=== PATIENT | male | born 1995 | race Caucasian/White ===

== ENCOUNTER 2019-05-03 15:09 | Emergency (ER) | payer OTHER ==
[2019-05-03] MEDS ORDERED: SODIUM CHLORIDE 0.9% 1,000 ML IV STA ×2 (16:18)
[2019-05-03 16:30] LABS: Basophils % (A) 0 %; Eosinophils # (A) 0.1 k/uL (0-0.7); Eosinophils % (A) 2 %; HCT 47.7 % (39.0-53.0); Lymphocytes # (A) 1.8 k/uL (1.0-4.8); Lymphocytes % (A) 28 %; MCH 29.8 pg (25.0-35.0); MCHC 33.6 g/dL (31.0-37.0); MCV 88.6 fL (80.0-100.0); Mean Platelet Volume 6.8; Monocytes # (A) 0.4 k/uL (0-1.0); Monocytes % (A) 5 %; Neutrophils % (A) 63 %; Platelet Count 300 k/uL (150-450); RBC 5.38 m/uL (4.30-5.90); RDW 13.3 % (11.5-15.5); WBC 6.4 k/uL (3.8-10.6)
[2019-05-03 16:46] LABS: ALT 12 U/L (21-72); AST 21 U/L (17-59); African American GFR (CKD) >90 (>60 ml/min/1.73 sqM); Albumin 5.1 g/dL (3.5-5.0); Alkaline Phosphatase 137 U/L (38-126); Amylase 50 U/L (30-110); Anion Gap 10 mmol/L; Blood Urea Nitrogen 12 mg/dL (9-20); Calcium 10.4 mg/dL (8.4-10.2); Carbon Dioxide 26 mmol/L (22-30); Chloride 106 mmol/L (98-107); Glucose 104 mg/dL (74-99); Lipase 115 U/L (23-300); Potassium 4.3 mmol/L (3.5-5.1); Sodium 142 mmol/L (137-145); Total Bilirubin 0.3 mg/dL (0.2-1.3); Total Protein 8.2 g/dL (6.3-8.2)
[2019-05-03 16:52] LABS: Partial Thromboplastin Time 25.5 sec (22.0-30.0); Prothrombin Time 10.6 sec (9.0-12.0)
--- NOTE | 2019-05-03 17:21 | XR ---
EXAMINATION TYPE: XR chest 2V DATE OF EXAM: 05/03/2019 COMPARISON: NONE HISTORY: Chest and abdominal pain with dizziness. TECHNIQUE: Frontal and lateral views of the chest are obtained. FINDINGS: There is no focal air space opacity, pleural effusion, or pneumothorax seen. The cardiac silhouette size is within normal limits. There is stent graft in the distal arch extending into the d escending thoracic aorta . The osseous structures are intact. IMPRESSION: No acute cardiopulmonary process.
--- NOTE | 2019-05-03 17:22 | XR ---
EXAMINATION TYPE: XR KUB DATE OF EXAM: 05/03/2019 5:15 PM CLINICAL HISTORY: Abdominal pain and dizziness. TECHNIQUE: Two Upright KUB images of the abdomen are obtained. COMPARISON: None. FINDINGS: Scattered gas is seen in non-distended stomach and small bowel loops. Gas and fecal materia l is seen in non-distended colon. There is no visceromegaly, pneumoperitoneum, or abnormal calcificat ion appreciated. The lung bases are clear and the osseous structures are intact. IMPRESSION: Overall nonobstructive bowel gas pattern.
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
[2019-05-03 18:16] LABS: Appearance,Urine Cloudy (Clear); Bilirubin,Urine Negative (Negative); Blood,Urine Negative (Negative); Calcium Oxalate Crystals,Urine Rare /hpf; Color,Urine Yellow; Glucose,Urine (UA) Negative (Negative); Ketones,Urine Negative (Negative); Leukocyte Esterase,Urine Negative (Negative); Mucus,Urine Many /hpf; Nitrite,Urine Negative (Negative); PH, Urine 5.5 (5.0-8.0); Protein,Urine 1+ (Negative)
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
[2019-05-03 20:12] VITALS: BP 132/73; PULSE 53; RESP 18; TEMP 97.8
== END 2019-05-03 20:13 | disposition home or self-care (01) ==
LOC: EC 15:09
DX: R07.89 Other chest pain (principal); R10.9 Unspecified abdominal pain; R51 Headache; R42 Dizziness and giddiness; R00.1 Bradycardia, unspecified; F17.200 Nicotine dependence, unspecified, uncomplicated; Z79.01 Long term (current) use of anticoagulants; Z79.899 Other long term (current) drug therapy; Z88.0 Allergy status to penicillin; Z95.828 Presence of other vascular implants and grafts
CPT/HCPCS: 99285; 96360; 96361 ×2; 36415; 93005; 80053; 82150; 83690; 84484; 85025; 85610; 85730; 81001; 71046; 74018; 71275; 74174; Q9967

== ENCOUNTER 2022-09-10 14:24 | Emergency (ER) | payer OTHER ==
[2022-09-10] MEDS ORDERED: LIDOCAINE 1% INJ 10MG/ML (30 ML VIAL-PF) SQ ONE (15:58)
[2022-09-10] MEDS ORDERED: DIPH,PERTUS(ACELL)TETVAC-LF 0.5 ML VIAL IM ONE (15:58)
--- NOTE | 2022-09-10 16:24 | XR ---
EXAMINATION TYPE: XR finger LT DATE OF EXAM: 09/10/2022 COMPARISON: NONE HISTORY: Laceration injury with pain TECHNIQUE: 3 views left thumb FINDINGS: No acute fracture or dislocation in the left thumb. Joint spaces are maintained. Overlying gauze and/or bandage material is seen, cannot exclude tiny punctate soft tissue foreign body near the radial base of the first proximal phalanx as seen on 2 views. IMPRESSION: As above.
[2022-09-10] MEDS ORDERED: MORPHINE SULFATE 4 MG/ML SYRINGE IM STA (16:49)
--- NOTE | 2022-09-10 17:06 | ED ---
Wound/Laceration HPI - General Chief Complaint: Wound/Laceration Stated Complaint: LEFT HAND INJURY Time Seen by Provider: 09/10/22 15:57 Source: patient, RN notes reviewed Mode of arrival: ambulatory Limitations: no limitations - History of Present Illness Initial Comments: Patient is 27-year-old male presenting to the emergency room after acc identally cutting his left hand/thumb while at work today on a utility knife. He reports utilizing utility and slipping causing a significantly large laceration to the palmar aspect of his left thumb. He denies any range of motion impairment or weakness.directly related to pain from the laceration. He is unsure of his tetanus status and is agreeable to have his tetanus vaccination updated. He does have past medical history of aortic surgeries and gets premedicated regarding dental work and is prophylactically treated with antibiotics for mild infections. He has a past medical history significant for IV drug abuse but is no longer utilizing them. - Related Data Home Medications Medication Instructions Recorded Confirmed Labetalol HCl [Trandate] 300 mg PO TID 05/03/19 05/03/19 Warfarin [Coumadin] 5 mg PO DAILY 05/03/19 05/03/19 Previous Rx's Medication Instructions Recorded Sulfamethox-Tmp 800-160Mg [Bactrim 1 tab PO Q12HR 5 Days #10 tab 09/10/22 DS 800-160 mg] Allergies Allergy/AdvReac Type Severity Reaction Status Date / Time Penicillins Allergy Unknown Verified 05/03/19 16:12 Childhood Review of Systems ROS Statement: Those systems with pertinent positive or pertinent negative responses have been documented in the HPI. ROS Other: All systems not noted in ROS Statement are negative. Past Medical History Past Medical History: No Reported History Additional Past Medical History / Comment(s): IV drug use, congenital aortic anomaly with surgical intervention History of Any Multi-Drug Resistant Organisms: None Reported Past Surgical History: Orthopedic Surgery Additional Past Surgical History / Comment(s): aortic graph Past Psychological History: ADD/ADHD Past Alcohol Use History: Occasional Past Drug Use History: Heroin, Marijuana General Exam Limitations: no limitations General appearance: alert Head exam: Present: atraumatic, normocephalic, normal inspection Eye exam: Present: normal appearance, PERRL, EOMI. Absent: scleral icterus, conjunctival injection, periorbital swelling ENT exam: Present: normal exam, mucous membranes moist Neck exam: Present: normal inspection, full ROM Respiratory exam: Absent: respiratory distress, accessory muscle use Cardiovascular Exam: Present: regular rate GI/Abdominal exam: Absent: distended Left Hand Wrist exam: Present: full ROM, tenderness, laceration. Absent: ecchymosis, deformity, crepitus, dislocation, erythema, amputation, nail avulsion Vascular: Absent: vascular compromise Back exam: Present: normal inspection Neurological exam: Present: alert, oriented X3, CN II-XII intact Psychiatric exam: Present: normal affect, normal mood Skin exam: Present: other (Laceration as above.) Course Vital Signs 09/10/22 09/10/22 14:52 17:14 Temperature 98 F 98.1 F Pulse Rate 80 94 Respiratory 16 17 Rate Blood Pressure 139/79 126/76 O2 Sat by Pulse 98 100 Oximetry Procedures - Laceration Laceration #1 Consent Obtained: verbal consent Indication: laceration Site: hand (Left thumb palmar aspect) Size (cm): 3 (3.5) Description: linear Depth: simple, single layer Anesthetic Used: lidocaine 1% Anesthesia Technique: local infiltration Pre-repair: wound explored, irrigated extensively Type of Sutures: nylon Size of Sutures: 4-0 Number of Sutures: 7 Technique: simple, interrupted Patient Tolerated Procedure: well, no complications Medical Decision Making - Medical Decision Making 27-year-old male presenting with laceration to left palmar aspect region. Due to depth of wound will obtain x-ray to ensure no chip fracture or foreign object. Will update tetanus. No indication for laboratory studies. Due to valvular repair will need prophylactic oral antibiotic treatment. X-ray left thumb and which interpreted by me shows no fracture, dislocation or foreign body. Radiologist report reviewed. Will plan for laceration closure with sutures. Laceration closure tolerated well. Will place on oral antibiotic therapy and discharge home in stable condition. Advised wound care and caution of sutures especially if returning to work. Advised need for suture removal in 7-10 days. Case discussed with Dr. Solares. - Radiology Data Radiology results: report reviewed, image reviewed Disposition Clinical Impression: Laceration Disposition: HOME SELF-CARE Condition: Stable Instructions (If sedation given, give patient instructions): Care For Your Stitches (ED), Laceration (ED) Additional Instructions: Please keep wound clean and dry. Monitor for signs and symptoms of infection and seek medical attention as appropriate if symptoms occur. Please complete course of antibiotic as prescribed. Please follow-up with your primary care provider. Please have sutures removed in 7-10 days, may return to the emergency department or with her primary care provider for removal. Please return to the Emergency Department if symptoms worsen or any other concerns. Prescriptions: Sulfamethox-Tmp 800-160Mg [Bactrim DS 800-160 mg] 1 tab PO Q12HR 5 Days #10 tab Is patient prescribed a controlled substance at d/c from ED?: No Referrals: None,Stated [Primary Care Provider] - 1-2 days Time of Disposition: 17:03
[2022-09-10 17:15] VITALS: BP 126/76; PULSE 94; RESP 17; TEMP 98.1
== END 2022-09-10 17:15 | disposition home or self-care (01) ==
LOC: EC 14:24
DX: S61.012A Laceration without foreign body of left thumb without damage to nail, initial encounter (principal); F12.90 Cannabis use, unspecified, uncomplicated; Z23 Encounter for immunization; Z88.0 Allergy status to penicillin; W26.0XXA Contact with knife, initial encounter
CPT/HCPCS: 73140; 90715; 99283; 96372; 90471; 12002; J2270; J2001